=== PATIENT | female | born 1980 | race Two or more races ===

== ENCOUNTER 2023-09-01 16:13 | Emergency (ER) | payer BC ==
[~2023-09-01] VITALS: Ht 160 cm; Wt 81.6 kg
[2023-09-01 17:59] LABS: BASOPHILS # (AUTO) 0.2 K/uL (0.0-0.2); BASOPHILS % (AUTO) 1.4 % (0.0-2.0); EOSINOPHILS # (AUTO) 0.2 K/uL (0.0-0.7); EOSINOPHILS % (AUTO) 1.9 % (0.0-6.0); HEMATOCRIT 32 % (33-45); HEMOGLOBIN 9.7 g/dL (11.5-14.8); LYMPHOCYTES # (AUTO) 2.7 K/uL (0.8-4.8); LYMPHOCYTES % (AUTO) 20.4 % (20.0-44.0); MEAN CORPUSCULAR HEMOGLOBIN 22 PG (26.0-33.0); MEAN CORPUSCULAR HGB CONC 30 g/dl (31.0-36.0); MEAN CORPUSCULAR VOLUME 71 fL (82-100); MONOCYTES % (AUTO) 7.3 % (2.0-12.0); NEUTROPHILS # (AUTO) 9.1 K/uL (1.8-8.9); PLATELET COUNT (AUTO) 458 K/uL (150-450); RED BLOOD CELL COUNT(AUTO) 4.52 MIL/uL (4.0-5.2); RED CELL DISTRIBUTION WIDTH 20.2 % (11.5-15.0); WHITE BLOOD COUNT (AUTO) 13.1 K/uL (4.3-11.0)
[2023-09-01 18:08] VITALS: BP 148/96; TEMP 98.5; O2SAT 100
[2023-09-01 18:13] LABS: CALCIUM, SERUM 8.7 mg/dL (8.5-10.1); CARBON DIOXIDE 26 mmol/L (21-32); CHLORIDE 103 mmol/L (98-107); CREATININE 0.8 mg/dL (0.6-1.3); GLUCOSE 121 mg/dL (74-106); POTASSIUM 3.9 mmol/L (3.5-5.1); SODIUM SERUM 136 mmol/L (136-145); UREA NITROGEN, BLOOD 10 mg/dL (7-18)
[2023-09-01 18:19] LABS: ALANINE AMINOTRANSFERASE 36 U/L (12-78); ALBUMIN 3.3 g/dL (3.4-5.0); ALKALINE PHOSPHATASE 95 U/L (46-116); ASPARTATE AMINOTRANSFERASE 20 U/L (15-37); BILIRUBIN,DIRECT 0.1 mg/dL (0.0-0.2); BILIRUBIN,TOTAL 0.4 mg/dL (0.2-1.0); TOTAL PROTEIN, SERUM 7.8 g/dL (6.4-8.2)
[2023-09-01 18:40] LABS: APPEARANCE,URINE SLIGHTLY CLOUDY (CLEAR); BILIRUBIN,URINE NEGATIVE (NEGATIVE); BLOOD, URINE NEGATIVE Ery/uL (NEGATIVE); COLOR,URINE YELLOW (YELLOW); KETONES,URINE NEGATIVE (NEGATIVE); LEUKOCYTE ESTERASE ,URINE 2+ (NEGATIVE); NITRITE, URINE NEGATIVE (NEGATIVE); PH,URINE 6.5 (5.0-8.0); PROTEIN,URINE NEGATIVE (NEGATIVE); UGLUCOSE NEGATIVE (NEGATIVE); UROBILINOGEN,URINE 0.2 EU/dL (0.2)
[2023-09-01 18:41] LABS: PREGNANCY TEST URINE QUAL NEGATIVE (NEGATIVE)
[2023-09-01 18:51] LABS: EOSINOPHILS % (MANUAL) 1 % (0-4); LYMPHOCYTES % (MANUAL) 18 % (16-48); MONOCYTES % (MANUAL) 5 % (0-11.0); NEUTROPHILS % (MANUAL) 76 (42-76)
[2023-09-01 18:52] LABS: PLATELET ESTIMATE ADEQUATE
[2023-09-01 18:55] LABS: ADD URINE CULTURE YES; BACTERIA,URINE Moderate /HPF (None Seen); RBC,URINE NONE SEEN /HPF (0-2); SQUAMOUS EPITHELIAL CELL,UR Moderate /HPF (None Seen); WBC,URINE 21-50 /HPF (0-3)
[2023-09-01] MEDS ORDERED: CEPH500C2 PO (21:56)
[2023-09-01] MEDS ORDERED: CEPHALEXIN MONOHYDRATE 500 MG CAPSULE PO ONE (22:00)
== END 2023-09-01 22:11 | disposition home or self-care (01) ==
LOC: ER 16:30
DX: N39.0 Urinary tract infection, site not specified (principal); I10 Essential (primary) hypertension; R42 Dizziness and giddiness; R51.9 Headache, unspecified
CPT/HCPCS: 36415; 70450-TC; 71045-TC; 80048-TC; 80076-TC; 81001; 84484-TC; 84703-TC; 85025-TC; 87086-TC